=== PATIENT | female | born 1985 | race Caucasian/White ===

== ENCOUNTER 2016-09-29 13:11 | Emergency (ER) | payer MEDICAID ==
[~2016-09-29] VITALS: Ht 167.6 cm; Wt 95.5 kg
[~2016-09-29 13:11] MED LIST: ATIVAN0.5 MG PO; AXERT12.5 MG PO; AXERT6.25 MG; BUFFERED ASPIR325 M1 PO; CIPRO 500MG TA500 MG PO; DILAUDID 2MG TAB2 MG; DILAUDID 2MG TAB2 MG PO; FLEXERIL10 MG PO; FLOMAX 0.40.4 MG/CAP PO; FLUCONAZOLE; IUD; LORTAB 5/500 501 TAB PO; LORTAB 7.5/5001 TAB PO; METHOCARBAMOL500 MG PO; MIDRIN; MIDRIN 325 MG-11 CAP PO; MIGRANAL4 MG/ML NS; MOTRIN800 MG PO; NAPROSYN PO; NAPROXEN ER500 MG PO; NO HOME MEDICATIONS; NORCO 325 MG-51 TAB; OMNICEF 300MG300 MG PO; OXYCODONE HCL5 MG PO; OXYCONTIN10 MG PO; PEPCID 20MG TAB20 MG PO; PERCOCET 325 MG1 TA2 PO; PERCOCET 325 MG1 TAB PO; PERCOCET 5/321 UDTAB PO; PERCOCET 500 MG1 TAB; PERCOCET 500 MG1 TAB PO; PHENERGAN 25 TA25 MG PO; PHENERGAN25 MG RC; PRENATAL 1 PLUS1 TA3 PO; PRILOSEC 20MG20 MG PO; PYRIDIUM 100MG100 MG PO; RELPAX40 MG PO; SEPTRA DS 8001 TAB PO; TRAZODONE100 MG PO; TYLENOL 500MG500 MG PO; VALIUM5 MG PO; WELLBUTRIN PO; ZANAFLEX PO; ZANAFLEX4 M1 PO; ZITHROMAX 250M250 MG PO; ZOMIG5 MG PO
[2016-09-29 13:13] VITALS: TEMP 98.3
[2016-09-29] MEDS ORDERED: ZOMIG 2.5MG2.5 MG PO (13:17)
[2016-09-29 15:24] VITALS: BP 109/74
[2016-09-29 16:17] VITALS: PULSE 74
== END 2016-09-29 16:17 | disposition home or self-care (01) ==
LOC: COL.ER 13:11
DX: K52.9 Noninfective gastroenteritis and colitis, unspecified (principal); G43.909 Migraine, unspecified, not intractable, without status migrainosus
CPT/HCPCS: J1170; J2405; J2550; J7030

== ENCOUNTER 2016-11-15 11:53 | Emergency (ER) | payer MEDICAID ==
[2009-07-07 04:11] VITALS: BP 120/59
[~2016-11-15] VITALS: Ht 167.6 cm; Wt 90.9 kg
[~2016-11-15 11:53] MED LIST changes: +ZOMIG 2.5MG2.5 MG PO
[2016-11-15 11:54] VITALS: TEMP 97.1
[2016-11-15 14:39] VITALS: BP 114/70; PULSE 80
== END 2016-11-15 14:40 | disposition home or self-care (01) ==
LOC: COL.ER 11:53
DX: G43.909 Migraine, unspecified, not intractable, without status migrainosus (principal); K52.9 Noninfective gastroenteritis and colitis, unspecified; Z87.891 Personal history of nicotine dependence
CPT/HCPCS: J1170; J1200; J2405; J7030

== ENCOUNTER 2017-03-06 16:11 | Emergency (ER) | payer MEDICAID ==
[2009-07-07 04:11] VITALS: BP 120/59
[~2017-03-06] VITALS: Ht 167.6 cm; Wt 104.5 kg
[2017-03-06 16:13] VITALS: TEMP 99
[2017-03-06] MEDS ORDERED: PREDNISONE10 MG PO ×2 (16:17)
[2017-03-06 18:13] LABS: PH 7 (5-8); SQUAMOUS EPITHELIAL None Seen /hpf; URINE APPEARANCE Clear; URINE BACTERIA None Seen /hpf; URINE BILIRUBIN Negative (NEGATIVE); URINE BLOOD 2+ (NEGATIVE); URINE COLOR Straw; URINE GLUCOSE Negative (NEGATIVE); URINE KETONE Negative (NEGATIVE); URINE RBC None Seen /hpf; URINE UROBILINOGEN Negative (NEGATIVE); URINE WBC 0-2 /hpf
[2017-03-06 22:00] VITALS: BP 122/81; PULSE 63
== END 2017-03-06 20:12 | disposition home or self-care (01) ==
LOC: COL.ER 16:11
PROVIDERS: Nurse Practitioner
DX: G43.909 Migraine, unspecified, not intractable, without status migrainosus (principal); R10.31 Right lower quadrant pain; Z87.442 Personal history of urinary calculi
CPT/HCPCS: J1170; J1200; J2550; J7030

== ENCOUNTER 2017-07-04 14:38 | Emergency (ER) | payer MEDICAID ==
[2009-07-07 04:11] VITALS: BP 120/59
[~2017-07-04] VITALS: Ht 167.6 cm; Wt 95.5 kg
[~2017-07-04 14:38] MED LIST changes: +PREDNISONE10 MG PO
[2017-07-04 14:41] VITALS: BP 144/72; TEMP 99.2
[2017-07-04] MEDS ORDERED: KLONOPIN 0.5MG0.5 MG PO (14:53)
[2017-07-04] MEDS ORDERED: ZOMIG 2.5MG2.5 MG PO (14:53)
[2017-07-04 16:16] VITALS: PULSE 83
== END 2017-07-04 16:17 | disposition home or self-care (01) ==
LOC: COL.ER 14:38
DX: G43.909 Migraine, unspecified, not intractable, without status migrainosus (principal)
CPT/HCPCS: J1170; J1200; J2550; J7030

== ENCOUNTER 2017-07-07 19:30 | Emergency (ER) | payer MEDICAID ==
[~2017-07-07] VITALS: Ht 167.6 cm; Wt 95.5 kg
[~2017-07-07 19:30] MED LIST changes: +KLONOPIN 0.5MG0.5 MG PO
[2017-07-07 19:35] VITALS: BP 140/70; TEMP 98.4
[2017-07-07] MEDS ORDERED: FIORICET 325 MG1 TA1 PO (21:40)
[2017-07-08 00:33] VITALS: PULSE 78
== END 2017-07-08 00:36 | disposition home or self-care (01) ==
LOC: COL.ER 19:30
DX: G43.909 Migraine, unspecified, not intractable, without status migrainosus (principal)
CPT/HCPCS: J1110; J1170; J1200; J2405; J2550; J7030

== ENCOUNTER → 2017-08-10 | Outpatient (CLI) | payer MEDICAID ==
[~2017-08-10] MED LIST changes: +FIORICET 325 MG1 TA1 PO
== END ==
LOC: COL.RAD 14:36
DX: M25.472 Effusion, left ankle (principal)

== ENCOUNTER 2017-09-18 15:36 | Emergency (ER) | payer MEDICAID ==
[2009-07-07 04:11] VITALS: BP 120/59
[~2017-09-18] VITALS: Ht 167.6 cm; Wt 104.5 kg
[2017-09-18 15:40] VITALS: TEMP 98.3
[2017-09-18 16:28] LABS: COLLECTION METHOD CLEAN CATCH
[2017-09-18 16:37] LABS: MUCOUS Present /lpf; PH 5 (5-8); URINE APPEARANCE Cloudy; URINE BACTERIA Rare /hpf; URINE BILIRUBIN Negative (NEGATIVE); URINE BLOOD 3+ (NEGATIVE); URINE COLOR Yellow; URINE GLUCOSE Negative (NEGATIVE); URINE KETONE Negative (NEGATIVE); URINE LEUKOCYTE ESTERASE Negative (NEGATIVE); URINE NITRATE Negative (NEGATIVE); URINE PROTEIN(semi-quant) Negative (NEGATIVE); URINE RBC >50 /hpf; URINE UROBILINOGEN Negative (NEGATIVE)
[2017-09-18 17:08] LABS: BASO % 0.7 % (0.0-2.0); EOS # 0.2 (0.0-0.7); EOS % 2.9 % (0-4.0); GRAN # 3.1 (1.4-6.5); GRAN % 55.1 % (42.2-75.2); HEMATOCRIT 41.3 % (37.0-47.0); HEMOGLOBIN 13.7 g/dl (12.5-16.0); LYMPH # 1.9 (1.2-3.4); LYMPH % 33.2 % (20.0-51.0); MEAN CELL VOLUME 82 fl (80.0-100.0); MEAN CORPUSCULAR HEMOGLOBIN 27 pg (27.0-31.0); MEAN CORPUSCULAR HGB CONC 33 g/dl (33.0-37.0); MEAN PLATELET VOLUME 10.7 fl (7.4-10.4); MONO # 0.4 (0.1-0.6); MONO % 7.7 % (1.7-9.3); PLATELET COUNT 222 K/mm3 (130-400); RED BLOOD COUNT 5.02 M/mm3 (4.10-5.30); REDCELL DISTRIBUTION WIDTH-CV 13.6 % (11.5-14.5)
[2017-09-18 17:20] LABS: ALBUMIN 4.7 gm/dL (3.5-5.0); BILIRUBIN,TOTAL 0.4 mg/dL (0.0-1.0); CALCIUM 9.5 mg/dL (8.4-10.2); CREATININE, serum 0.75 mg/dL (0.52-1.25); POTASSIUM 4.1 mmol/L (3.4-5.0)
[2017-09-18 17:40] VITALS: BP 121/86
[2017-09-18] MEDS ORDERED: NORCO 325 MG-51 TAB PO (18:44)
[2017-09-18 19:04] VITALS: PULSE 76
== END 2017-09-18 19:04 | disposition home or self-care (01) ==
LOC: COL.ER 15:36
PROVIDERS: Nurse Practitioner Primary Care
DX: R10.31 Right lower quadrant pain (principal); Z90.49 Acquired absence of other specified parts of digestive tract; Z90.89 Acquired absence of other organs; Z87.442 Personal history of urinary calculi
CPT/HCPCS: J1170; J2270; J2405; J7030

== ENCOUNTER 2017-10-24 08:37 | Day surgery (SDC) | payer MEDICAID ==
[2009-07-07 04:11] VITALS: BP 120/59
[~2017-10-24] VITALS: Ht 167.6 cm; Wt 109.2 kg
[~2017-10-24 08:37] MED LIST changes: +NORCO 325 MG-51 TAB PO
[2017-10-24 08:58] VITALS: BP 127/80; PULSE 91; TEMP 97.9
[2017-10-24 11:20] VITALS: BP 107/71; PULSE 74; TEMP 98
[2017-10-24 11:35] VITALS: BP 94/56; PULSE 74
[2017-10-24] MEDS ORDERED: MIRALAX PA17 GM/Dose PO (11:36)
[2017-10-24 11:50] VITALS: BP 116/70; PULSE 70
[2017-10-24 12:05] VITALS: BP 106/78; PULSE 60
== END 2017-10-24 12:20 | disposition home or self-care (01) ==
LOC: SDCO 08:37
DX: D72.820 Lymphocytosis (symptomatic) (principal); K29.30 Chronic superficial gastritis without bleeding; K44.9 Diaphragmatic hernia without obstruction or gangrene; K29.80 Duodenitis without bleeding; R10.84 Generalized abdominal pain; K64.4 Residual hemorrhoidal skin tags; E66.01 Morbid (severe) obesity due to excess calories; Z68.39 Body mass index [BMI] 39.0-39.9, adult; F32.9 Major depressive disorder, single episode, unspecified; G43.909 Migraine, unspecified, not intractable, without status migrainosus; Z87.891 Personal history of nicotine dependence; F19.11 Other psychoactive substance abuse, in remission; Z88.6 Allergy status to analgesic agent; Z88.5 Allergy status to narcotic agent; Z88.0 Allergy status to penicillin; Z88.8 Allergy status to other drugs, medicaments and biological substances
CPT/HCPCS: OP; J2704; J7120

== ENCOUNTER 2018-01-02 10:07 | Emergency (ER) | payer BC ==
[2009-07-07 04:11] VITALS: BP 120/59
[~2018-01-02] VITALS: Ht 167.6 cm; Wt 120.5 kg
[~2018-01-02 10:07] MED LIST changes: +MIRALAX PA17 GM/Dose PO
[2018-01-02 10:12] VITALS: BP 122/88; TEMP 98.1
[2018-01-02] MEDS ORDERED: NORCO 325 MG-51 TAB PO (11:34)
[2018-01-02] MEDS ORDERED: FLEXERIL 1010 MG/TAB PO (11:34)
[2018-01-02 12:12] VITALS: PULSE 98
[2018-01-02] MEDS ORDERED: PREDNISONE20 MG PO (13:58)
== END 2018-01-02 12:11 | disposition home or self-care (01) ==
LOC: COL.ER 10:07
DX: S33.9XXA Sprain of unspecified parts of lumbar spine and pelvis, initial encounter (principal); M62.830 Muscle spasm of back; G43.909 Migraine, unspecified, not intractable, without status migrainosus; X50.1XXA Overexertion from prolonged static or awkward postures, initial encounter
CPT/HCPCS: J1170; J2060; J7512

== ENCOUNTER → 2018-02-09 | Outpatient (CLI) | payer BC ==
[~2018-02-09] MED LIST changes: +FLEXERIL 1010 MG/TAB PO; +PREDNISONE20 MG PO
== END ==
LOC: MHCPAIN 10:41
DX: G89.29 Other chronic pain (principal); M47.817 Spondylosis without myelopathy or radiculopathy, lumbosacral region; M54.16 Radiculopathy, lumbar region
CPT/HCPCS: G0463

== ENCOUNTER 2018-02-16 08:18 | Emergency (ER) | payer BC ==
[2009-07-07 04:11] VITALS: BP 120/59
[~2018-02-16] VITALS: Ht 167.6 cm; Wt 111.4 kg
[2018-02-16 08:22] VITALS: BP 120/74; TEMP 98
[2018-02-16] MEDS ORDERED: PREDNISONE20 MG PO (08:27)
[2018-02-16] MEDS ORDERED: ZOMIG 2.5MG2.5 MG PO (08:28)
[2018-02-16] MEDS ORDERED: NEURONTIN300 MG/CAP PO (08:29)
[2018-02-16] MEDS ORDERED: KLONOPIN 0.5MG0.5 MG PO (08:30)
[2018-02-16 10:45] VITALS: PULSE 80
== END 2018-02-16 10:45 | disposition home or self-care (01) ==
LOC: COL.ER 08:18
DX: G43.909 Migraine, unspecified, not intractable, without status migrainosus (principal); Z88.6 Allergy status to analgesic agent
CPT/HCPCS: J0595; J2550; J3010

== ENCOUNTER → 2019-06-17 | Outpatient (CLI) | payer MEDICAID ==
[~2019-06-17] MED LIST changes: +NEURONTIN300 MG/CAP PO
== END ==
LOC: DIA.ED 08:38
DX: E11.9 Type 2 diabetes mellitus without complications (principal)
CPT/HCPCS: G0108

== ENCOUNTER 2019-11-08 20:33 | Emergency (ER) | payer MEDICAID ==
[2009-07-07 04:11] VITALS: BP 120/59
[~2019-11-08] VITALS: Ht 165.1 cm; Wt 118.2 kg
[2019-11-09 00:27] VITALS: BP 106/66; PULSE 100; TEMP 98.2
== END 2019-11-09 00:44 | disposition home or self-care (01) ==
LOC: COL.ER 20:33
DX: J06.9 Acute upper respiratory infection, unspecified (principal); F41.9 Anxiety disorder, unspecified; G43.909 Migraine, unspecified, not intractable, without status migrainosus; Z87.891 Personal history of nicotine dependence
CPT/HCPCS: J2550

== ENCOUNTER 2020-04-28 16:45 | Emergency (ER) | payer MEDICAID ==
[2009-07-07 04:11] VITALS: BP 120/59
[~2020-04-28] VITALS: Ht 165.1 cm; Wt 100.0 kg
[2020-04-28 16:53] VITALS: TEMP 97.6
[2020-04-28] MEDS ORDERED: NORCO 325 MG-51 TAB PO (19:27)
[2020-04-28] MEDS ORDERED: FLEXERIL 1010 MG/TAB PO (19:27)
[2020-04-28 20:11] VITALS: BP 119/75; PULSE 81
== END 2020-04-28 20:00 | disposition home or self-care (01) ==
LOC: COL.ER 16:45
DX: S16.1XXA Strain of muscle, fascia and tendon at neck level, initial encounter (principal); G43.909 Migraine, unspecified, not intractable, without status migrainosus; V43.62XA Car passenger injured in collision with other type car in traffic accident, initial encounter
CPT/HCPCS: J1170; J1200; J2550; J7030

== ENCOUNTER 2020-11-30 23:32 | Emergency (ER) | payer MEDICAID ==
[2009-07-07 04:11] VITALS: BP 120/59
[~2020-11-30] VITALS: Ht 165.1 cm; Wt 86.4 kg
[2020-11-30 23:36] VITALS: TEMP 97.1
[2020-12-01 00:30] LABS: COLLECTION METHOD CLEAN CATCH
[2020-12-01 00:32] LABS: BASO % 0.9 % (0.0-2.0); EOS # 0.3 (0.0-0.7); GRAN # 1.7 (1.4-6.5); GRAN % 37.6 % (42.2-75.2); HEMATOCRIT 38.9 % (37.0-47.0); HEMOGLOBIN 12.6 g/dl (12.5-16.0); LYMPH # 2.1 (1.2-3.4); LYMPH % 46.4 % (20.0-51.0); MEAN CELL VOLUME 84 fl (80.0-100.0); MEAN CORPUSCULAR HEMOGLOBIN 27 pg (27.0-31.0); MEAN CORPUSCULAR HGB CONC 32 g/dl (33.0-37.0); MEAN PLATELET VOLUME 9.9 fl (7.4-10.4); MONO # 0.4 (0.1-0.6); MONO % 8.9 % (1.7-9.3); PLATELET COUNT 204 K/mm3 (130-400); RED BLOOD COUNT 4.63 M/mm3 (4.10-5.30); REDCELL DISTRIBUTION WIDTH-CV 13.2 % (11.5-14.5)
[2020-12-01 00:36] LABS: MUCOUS Present /lpf; PH 5 (5-8); URINE APPEARANCE Cloudy; URINE BACTERIA Rare /hpf; URINE BILIRUBIN Negative (NEGATIVE); URINE BLOOD 3+ (NEGATIVE); URINE COLOR Yellow; URINE GLUCOSE Negative (NEGATIVE); URINE KETONE Negative (NEGATIVE); URINE LEUKOCYTE ESTERASE Negative (NEGATIVE); URINE NITRATE Negative (NEGATIVE); URINE PROTEIN(semi-quant) 1+ (NEGATIVE); URINE RBC >50 /hpf
[2020-12-01 00:42] LABS: CALCIUM 9.1 mg/dL (8.4-10.2); CREATININE, serum 0.6 (0.52-1.25); POTASSIUM 3.7 mmol/L (3.4-5.0)
[2020-12-01] MEDS ORDERED: PERCOCET 325 MG1 TA2 PO (02:09)
[2020-12-01] MEDS ORDERED: FLEXERIL 1010 MG/TAB PO (02:09)
[2020-12-01] MEDS ORDERED: PREDNISONE20 MG PO (02:09)
[2020-12-01 02:31] VITALS: BP 120/69; PULSE 89
[2021-06-30] MEDS ORDERED: ASPERCREME1 EACH TP (18:18)
== END 2020-12-01 02:35 | disposition home or self-care (01) ==
LOC: COL.ER 23:32
PROVIDERS: Emergency Medicine
DX: R31.9 Hematuria, unspecified (principal); M54.5 Low back pain; Z87.442 Personal history of urinary calculi; Z88.8 Allergy status to other drugs, medicaments and biological substances; Z88.0 Allergy status to penicillin; Z88.6 Allergy status to analgesic agent
CPT/HCPCS: J2060; J2270; J2405; J3010; J7030; Q9967

== ENCOUNTER 2020-12-15 18:19 | Emergency (ER) | payer MEDICAID ==
[2009-07-07 04:11] VITALS: BP 120/59
[~2020-12-15] VITALS: Ht 165.1 cm; Wt 90.9 kg
[2020-12-15 18:23] VITALS: TEMP 97.7
[2020-12-15 18:51] LABS: BASO % 0.9 % (0.0-2.0); EOS # 0.2 (0.0-0.7); EOS % 4.5 % (0-4.0); GRAN # 2.1 (1.4-6.5); GRAN % 48.1 % (42.2-75.2); HEMATOCRIT 40.2 % (37.0-47.0); HEMOGLOBIN 13.2 g/dl (12.5-16.0); LYMPH # 1.5 (1.2-3.4); LYMPH % 34.4 % (20.0-51.0); MEAN CELL VOLUME 83 fl (80.0-100.0); MEAN CORPUSCULAR HEMOGLOBIN 27 pg (27.0-31.0); MEAN CORPUSCULAR HGB CONC 33 g/dl (33.0-37.0); MEAN PLATELET VOLUME 10.4 fl (7.4-10.4); MONO # 0.5 (0.1-0.6); MONO % 11.9 % (1.7-9.3); PLATELET COUNT 191 K/mm3 (130-400); RED BLOOD COUNT 4.86 M/mm3 (4.10-5.30)
[2020-12-15 19:03] LABS: ALBUMIN 4.4 gm/dL (3.5-5.0); BILIRUBIN,TOTAL 0.2 mg/dL (0.0-1.0); C-REACTIVE PROTEIN 0.7 mg/dL (0.0-0.9); CALCIUM 9.1 mg/dL (8.4-10.2); CREATININE, serum 0.5 (0.52-1.25); POTASSIUM 3.7 mmol/L (3.4-5.0)
[2020-12-15 19:24] LABS: COLLECTION METHOD CLEAN CATCH
[2020-12-15 19:31] LABS: MUCOUS Present /lpf; PH 5 (5-8); URINE APPEARANCE Cloudy; URINE BACTERIA Rare /hpf; URINE BILIRUBIN Negative (NEGATIVE); URINE BLOOD Negative (NEGATIVE); URINE COLOR Yellow; URINE GLUCOSE Negative (NEGATIVE); URINE KETONE Negative (NEGATIVE); URINE LEUKOCYTE ESTERASE Negative (NEGATIVE); URINE NITRATE Negative (NEGATIVE); URINE PROTEIN(semi-quant) Negative (NEGATIVE)
[2020-12-15 19:54] VITALS: BP 118/90; PULSE 78
[2021-06-30] MEDS ORDERED: ASPERCREME1 EACH TP (18:18)
== END 2020-12-15 19:54 | disposition home or self-care (01) ==
LOC: COL.ER 18:19
PROVIDERS: Nurse Practitioner
DX: R10.9 Unspecified abdominal pain (principal); G43.909 Migraine, unspecified, not intractable, without status migrainosus; Z32.02 Encounter for pregnancy test, result negative; Z90.49 Acquired absence of other specified parts of digestive tract; Z88.8 Allergy status to other drugs, medicaments and biological substances; Z88.0 Allergy status to penicillin; Z88.6 Allergy status to analgesic agent; Z87.891 Personal history of nicotine dependence; Z79.52 Long term (current) use of systemic steroids
CPT/HCPCS: J2060; J2270; J2405; J3010; J7030

== ENCOUNTER 2021-02-02 20:43 | Emergency (ER) | payer MEDICAID ==
[2009-07-07 04:11] VITALS: BP 120/59
[~2021-02-02] VITALS: Ht 165.1 cm; Wt 88.6 kg
[2021-02-02 20:57] VITALS: TEMP 98.3
[2021-02-02 21:21] LABS: BASO # 0.1 (0.0-0.2); BASO % 0.9 % (0.0-2.0); EOS # 0.3 (0.0-0.7); EOS % 5.8 % (0-4.0); GRAN # 2.4 (1.4-6.5); GRAN % 44.8 % (42.2-75.2); HEMATOCRIT 41.2 % (37.0-47.0); HEMOGLOBIN 13.5 g/dl (12.5-16.0); LYMPH # 2.2 (1.2-3.4); LYMPH % 40.1 % (20.0-51.0); MEAN CELL VOLUME 83 fl (80.0-100.0); MEAN CORPUSCULAR HEMOGLOBIN 27 pg (27.0-31.0); MEAN CORPUSCULAR HGB CONC 33 g/dl (33.0-37.0); MEAN PLATELET VOLUME 10.2 fl (7.4-10.4); MONO # 0.4 (0.1-0.6); MONO % 8.2 % (1.7-9.3); PLATELET COUNT 207 K/mm3 (130-400); RED BLOOD COUNT 4.99 M/mm3 (4.10-5.30); REDCELL DISTRIBUTION WIDTH-CV 12.7 % (11.5-14.5)
[2021-02-02 21:32] LABS: ALBUMIN 4.4 gm/dL (3.5-5.0); BILIRUBIN,TOTAL 0.2 mg/dL (0.0-1.0); CALCIUM 8.9 mg/dL (8.4-10.2); CREATININE, serum 0.53 (0.52-1.25)
[2021-02-02 22:14] LABS: COLLECTION METHOD CLEAN CATCH
[2021-02-02 22:33] LABS: BUDDING YEAST Present /hpf; MUCOUS Present /lpf; PH 5 (5-8); URINE APPEARANCE Cloudy; URINE BACTERIA None Seen /hpf; URINE BILIRUBIN Negative (NEGATIVE); URINE BLOOD 3+ (NEGATIVE); URINE COLOR Amber; URINE GLUCOSE Negative (NEGATIVE); URINE KETONE Trace (NEGATIVE); URINE LEUKOCYTE ESTERASE Negative (NEGATIVE); URINE NITRATE Negative (NEGATIVE); URINE PROTEIN(semi-quant) 2+ (NEGATIVE); URINE RBC >50 /hpf; URINE UROBILINOGEN >=4.0 mg/dL (NEGATIVE)
[2021-02-02] MEDS ORDERED: PERCOCET 325 MG1 TA2 PO (23:15)
[2021-02-02] MEDS ORDERED: PHENERGAN 25 TA25 MG PO (23:15)
[2021-02-02] MEDS ORDERED: CEFTIN500 MG PO (23:15)
[2021-02-02 23:30] VITALS: BP 120/80; PULSE 88
[2021-06-30] MEDS ORDERED: ASPERCREME1 EACH TP (18:18)
== END 2021-02-02 23:35 | disposition home or self-care (01) ==
LOC: COL.ER 20:43
PROVIDERS: Emergency Medicine
DX: N39.0 Urinary tract infection, site not specified (principal); G43.909 Migraine, unspecified, not intractable, without status migrainosus; Z90.49 Acquired absence of other specified parts of digestive tract; Z88.0 Allergy status to penicillin; Z88.6 Allergy status to analgesic agent; Z79.891 Long term (current) use of opiate analgesic
CPT/HCPCS: J0696; J1170; J2550; J7030; Q9967

== ENCOUNTER 2021-02-10 20:46 | Emergency (ER) | payer MEDICAID ==
[2009-07-07 04:11] VITALS: BP 120/59
[~2021-02-10] VITALS: Ht 165.1 cm; Wt 90.9 kg
[~2021-02-10 20:46] MED LIST changes: +CEFTIN500 MG PO
[2021-02-10 21:34] LABS: BASO % 0.8 % (0.0-2.0); EOS # 0.2 (0.0-0.7); EOS % 4.8 % (0-4.0); GRAN # 1.8 (1.4-6.5); GRAN % 35.6 % (42.2-75.2); HEMATOCRIT 39.5 % (37.0-47.0); LYMPH # 2.5 (1.2-3.4); LYMPH % 50.9 % (20.0-51.0); MEAN CELL VOLUME 83 fl (80.0-100.0); MEAN CORPUSCULAR HEMOGLOBIN 27 pg (27.0-31.0); MEAN CORPUSCULAR HGB CONC 33 g/dl (33.0-37.0); MEAN PLATELET VOLUME 10.8 fl (7.4-10.4); MONO # 0.4 (0.1-0.6); MONO % 7.7 % (1.7-9.3); PLATELET COUNT 199 K/mm3 (130-400); RED BLOOD COUNT 4.76 M/mm3 (4.10-5.30); REDCELL DISTRIBUTION WIDTH-CV 12.9 % (11.5-14.5)
[2021-02-10 21:36] LABS: ALBUMIN 4.6 gm/dL (3.5-5.0); BILIRUBIN,TOTAL 0.4 mg/dL (0.0-1.0); CALCIUM 8.9 mg/dL (8.4-10.2); CREATININE, serum 0.53 (0.52-1.25); POTASSIUM 3.6 mmol/L (3.4-5.0); TOTAL PROTEIN 8.3 gm/dL (6.4-8.2)
[2021-02-10 21:47] LABS: COLLECTION METHOD CLEAN CATCH
[2021-02-10 21:57] LABS: MUCOUS Present /lpf; PH 5 (5-8); URINE APPEARANCE Cloudy; URINE BACTERIA Rare /hpf; URINE BILIRUBIN Negative (NEGATIVE); URINE BLOOD 3+ (NEGATIVE); URINE COLOR Yellow; URINE GLUCOSE Negative (NEGATIVE); URINE KETONE Negative (NEGATIVE); URINE LEUKOCYTE ESTERASE Negative (NEGATIVE); URINE NITRATE Negative (NEGATIVE); URINE PROTEIN(semi-quant) Negative (NEGATIVE); URINE RBC >50 /hpf; URINE UROBILINOGEN Negative (NEGATIVE)
[2021-02-11 00:19] VITALS: BP 152/110; PULSE 94; TEMP 98.7
[2021-06-30] MEDS ORDERED: ASPERCREME1 EACH TP (18:18)
== END 2021-02-10 23:15 | disposition home or self-care (01) ==
LOC: COL.ER 20:46
PROVIDERS: Physician Assistant
DX: N39.0 Urinary tract infection, site not specified (principal); G43.909 Migraine, unspecified, not intractable, without status migrainosus; Z87.442 Personal history of urinary calculi; Z98.84 Bariatric surgery status; Z90.49 Acquired absence of other specified parts of digestive tract; Z87.891 Personal history of nicotine dependence; Z79.891 Long term (current) use of opiate analgesic
CPT/HCPCS: J1200; J1630; J2060; J2270; J2405; J7030

== ENCOUNTER 2021-07-10 14:23 | Emergency (ER) | payer MEDICAID ==
[~2021-07-10] VITALS: Ht 165.1 cm; Wt 84.1 kg
[~2021-07-10 14:23] MED LIST changes: +ASPERCREME1 EACH TP
[2021-07-10 15:02] LABS: BASO # 0.1 K/mm3 (0.0-0.2); BASO % 0.8 % (0.0-2.0); EOS # 0.1 K/mm3 (0.0-0.7); EOS % 0.9 % (0-4.0); GRAN # 5.6 K/mm3 (1.4-6.5); GRAN % 69.4 % (42.2-75.2); HEMATOCRIT 41.3 % (37.0-47.0); LYMPH # 1.9 K/mm3 (1.2-3.4); LYMPH % 23.2 % (20.0-51.0); MEAN CELL VOLUME 81 fl (80.0-100.0); MEAN CORPUSCULAR HEMOGLOBIN 27 pg (27.0-31.0); MEAN CORPUSCULAR HGB CONC 34 g/dl (33.0-37.0); MEAN PLATELET VOLUME 10.1 fl (7.4-10.4); MONO # 0.4 K/mm3 (0.1-0.6); MONO % 5.4 % (1.7-9.3); PLATELET COUNT 250 K/mm3 (130-400); RED BLOOD COUNT 5.11 M/mm3 (4.10-5.30); REDCELL DISTRIBUTION WIDTH-CV 13.1 % (11.5-14.5)
[2021-07-10 15:24] LABS: ALANINE AMINOTRANSFERASE 16 U/L (0-55); ALBUMIN 4.3 gm/dL (3.5-5.0); ALKALINE PHOSPHATASE 70 U/L (40-150); ANION GAP 11 mmol/L (7-16); AST,SGOT 14 U/L (5-34); BILIRUBIN,TOTAL 0.6 mg/dL (0.2-1.2); BLOOD UREA NITROGEN 8 mg/dL (7-19); C-REACTIVE PROTEIN 0.08 mg/dL (0.00-0.50); CALCIUM 9.9 mg/dL (8.4-10.2); CARBON DIOXIDE 20 mmol/L (22-29); CHLORIDE 110 mmol/L (98-107); GLUCOSE 132 mg/dL (70-99); LIPASE 12 U/L (8-78); POTASSIUM 3.7 mmol/L (3.5-4.5); SODIUM 141 mmol/L (136-145); TOTAL PROTEIN 7.9 gm/dL (6.2-8.1)
[2021-07-10 15:26] LABS: ALCOHOL(ethanol),MEDICAL < 10 mg/dL (0-10)
[2021-07-10 17:06] LABS: COLLECTION METHOD CLEAN CATCH
[2021-07-10 17:13] LABS: MUCOUS Present /lpf; PH 5 (5-8); URINE APPEARANCE Hazy; URINE BACTERIA Rare /hpf; URINE BILIRUBIN Negative (NEGATIVE); URINE BLOOD Negative (NEGATIVE); URINE COLOR Yellow; URINE GLUCOSE Negative (NEGATIVE); URINE KETONE Negative (NEGATIVE); URINE LEUKOCYTE ESTERASE Negative (NEGATIVE); URINE NITRATE Negative (NEGATIVE); URINE PROTEIN(semi-quant) 1+ (NEGATIVE); URINE UROBILINOGEN Negative (NEGATIVE)
[2021-07-10 17:23] LABS: TRICYCLIC ANTIDEPRESS URINE POSITIVE
[2021-07-10] MEDS ORDERED: CEFTIN500 MG PO (18:51)
[2021-07-10 19:08] VITALS: BP 116/88; PULSE 112; TEMP 98.4
== END 2021-07-10 19:08 | disposition home or self-care (01) ==
LOC: COL.ER 14:23
PROVIDERS: Physician Assistant
DX: R30.0 Dysuria (principal); R10.9 Unspecified abdominal pain; R55 Syncope and collapse; F41.9 Anxiety disorder, unspecified; G43.909 Migraine, unspecified, not intractable, without status migrainosus; Z87.442 Personal history of urinary calculi; Z96.0 Presence of urogenital implants; Z32.02 Encounter for pregnancy test, result negative; Z79.899 Other long term (current) drug therapy
CPT/HCPCS: J2060; J2270; J7030; Q9967

== ENCOUNTER 2021-07-16 21:19 | Emergency (ER) | payer MEDICAID ==
[~2021-07-16] VITALS: Ht 165.1 cm; Wt 86.4 kg
[2021-07-16 21:54] LABS: BASO # 0.1 K/mm3 (0.0-0.2); BASO % 0.7 % (0.0-2.0); EOS # 0.2 K/mm3 (0.0-0.7); GRAN # 4.8 K/mm3 (1.4-6.5); GRAN % 52.1 % (42.2-75.2); HEMATOCRIT 37.9 % (37.0-47.0); HEMOGLOBIN 13.1 g/dl (12.5-16.0); LYMPH # 3.4 K/mm3 (1.2-3.4); LYMPH % 37.2 % (20.0-51.0); MEAN CELL VOLUME 81 fl (80.0-100.0); MEAN CORPUSCULAR HEMOGLOBIN 28 pg (27.0-31.0); MEAN CORPUSCULAR HGB CONC 35 g/dl (33.0-37.0); MEAN PLATELET VOLUME 11.6 fl (7.4-10.4); MONO # 0.7 K/mm3 (0.1-0.6); MONO % 7.9 % (1.7-9.3); PLATELET COUNT 243 K/mm3 (130-400); REDCELL DISTRIBUTION WIDTH-CV 13.5 % (11.5-14.5)
[2021-07-16 22:22] LABS: BILIRUBIN,TOTAL 0.4 mg/dL (0.2-1.2); C-REACTIVE PROTEIN 0.06 mg/dL (0.00-0.50); CALCIUM 9.6 mg/dL (8.4-10.2); POTASSIUM 3.3 mmol/L (3.5-4.5); TOTAL PROTEIN 6.6 gm/dL (6.2-8.1)
[2021-07-16 22:26] LABS: COLLECTION METHOD CLEAN CATCH
[2021-07-16 22:37] LABS: CREATININE, serum 0.67 mg/dL (0.57-1.11)
[2021-07-16 23:09] LABS: MUCOUS Present /lpf; PH 6 (5-8); URINE APPEARANCE Cloudy; URINE BACTERIA Rare /hpf; URINE BILIRUBIN Negative (NEGATIVE); URINE BLOOD 2+ (NEGATIVE); URINE CALCIUM OXALATE CRYSTAL Present /hpf; URINE COLOR Yellow; URINE GLUCOSE Negative (NEGATIVE); URINE KETONE Negative (NEGATIVE); URINE LEUKOCYTE ESTERASE 3+ (NEGATIVE); URINE NITRATE Negative (NEGATIVE); URINE PROTEIN(semi-quant) 2+ (NEGATIVE); URINE RBC >50 /hpf; URINE UROBILINOGEN Negative (NEGATIVE)
[2021-07-17] MEDS ORDERED: BACTRIM DS 8001 TAB PO (00:27)
[2021-07-17 00:50] VITALS: BP 131/74; PULSE 80; TEMP 98
== END 2021-07-17 00:50 | disposition home or self-care (01) ==
LOC: COL.ER 21:19
PROVIDERS: Nurse Practitioner; Personal Emergency Response Attendant
DX: N39.0 Urinary tract infection, site not specified (principal); G43.909 Migraine, unspecified, not intractable, without status migrainosus; Z87.442 Personal history of urinary calculi; Z90.49 Acquired absence of other specified parts of digestive tract; Z96.0 Presence of urogenital implants; Z98.84 Bariatric surgery status; Z88.0 Allergy status to penicillin; Z88.5 Allergy status to narcotic agent; Z79.899 Other long term (current) drug therapy
CPT/HCPCS: J1170; J2270; J2405; J2550; J7030

== ENCOUNTER 2021-07-19 09:14 | Emergency (ER) | payer MEDICAID ==
[~2021-07-19] VITALS: Ht 162.6 cm; Wt 84.5 kg
[~2021-07-19 09:14] MED LIST changes: +BACTRIM DS 8001 TAB PO
[2021-07-19 09:35] LABS: BASO % 0.8 % (0.0-2.0); EOS # 0.1 K/mm3 (0.0-0.7); EOS % 2.8 % (0-4.0); GRAN # 2.9 K/mm3 (1.4-6.5); GRAN % 57.3 % (42.2-75.2); HEMATOCRIT 38.6 % (37.0-47.0); HEMOGLOBIN 13.3 g/dl (12.5-16.0); LYMPH # 1.6 K/mm3 (1.2-3.4); MEAN CELL VOLUME 80 fl (80.0-100.0); MEAN CORPUSCULAR HEMOGLOBIN 28 pg (27.0-31.0); MEAN CORPUSCULAR HGB CONC 35 g/dl (33.0-37.0); MEAN PLATELET VOLUME 10.3 fl (7.4-10.4); MONO # 0.4 K/mm3 (0.1-0.6); MONO % 7.9 % (1.7-9.3); PLATELET COUNT 256 K/mm3 (130-400); RED BLOOD COUNT 4.81 M/mm3 (4.10-5.30); REDCELL DISTRIBUTION WIDTH-CV 13.3 % (11.5-14.5)
[2021-07-19 09:51] LABS: COLLECTION METHOD CLEAN CATCH
[2021-07-19 09:57] LABS: MUCOUS Present /lpf; PH 6 (5-8); URINE APPEARANCE Hazy; URINE BACTERIA Rare /hpf; URINE BILIRUBIN Negative (NEGATIVE); URINE BLOOD Negative (NEGATIVE); URINE COLOR Yellow; URINE GLUCOSE Negative (NEGATIVE); URINE KETONE Negative (NEGATIVE); URINE LEUKOCYTE ESTERASE Negative (NEGATIVE); URINE NITRATE Negative (NEGATIVE); URINE PROTEIN(semi-quant) Negative (NEGATIVE); URINE RBC 0-2 /hpf; URINE UROBILINOGEN Negative (NEGATIVE)
[2021-07-19 09:59] LABS: ALBUMIN 4.2 gm/dL (3.5-5.0); BILIRUBIN,TOTAL 0.4 mg/dL (0.2-1.2); CALCIUM 9.5 mg/dL (8.4-10.2); CREATININE, serum 0.69 mg/dL (0.57-1.11); POTASSIUM 4.1 mmol/L (3.5-4.5); TOTAL PROTEIN 7.5 gm/dL (6.2-8.1)
[2021-07-19 13:16] VITALS: TEMP 98.1
[2021-07-19 13:47] VITALS: BP 123/87; PULSE 87
[2021-07-20] MEDS ORDERED: LIBRIUM 10M10 MG/CAP PO (14:11)
== END 2021-07-19 14:09 | disposition left against medical advice (07) ==
LOC: COL.ER 09:14
PROVIDERS: Emergency Medicine
DX: R10.32 Left lower quadrant pain (principal); F32.A Depression, unspecified; F41.9 Anxiety disorder, unspecified; M32.9 Systemic lupus erythematosus, unspecified; Z32.02 Encounter for pregnancy test, result negative; Z90.49 Acquired absence of other specified parts of digestive tract; Z98.84 Bariatric surgery status; Z79.899 Other long term (current) drug therapy
CPT/HCPCS: J2060; J2270; J2405; J2550; J3010; J7030

== ENCOUNTER 2021-07-20 12:27 | Emergency (ER) | payer MEDICAID ==
[~2021-07-20] VITALS: Ht 162.6 cm; Wt 84.1 kg
[2021-07-20 12:31] VITALS: TEMP 98.8
[2021-07-20] MEDS ORDERED: LIBRIUM 10M10 MG/CAP PO (14:11)
[2021-07-20 14:30] VITALS: BP 138/99; PULSE 100
== END 2021-07-20 14:30 | disposition home or self-care (01) ==
LOC: COL.ER 12:27
DX: F41.9 Anxiety disorder, unspecified (principal); R10.32 Left lower quadrant pain; G43.909 Migraine, unspecified, not intractable, without status migrainosus; Z90.49 Acquired absence of other specified parts of digestive tract; Z98.84 Bariatric surgery status

== ENCOUNTER 2021-07-26 05:27 | Emergency (ER) | payer MEDICAID ==
[~2021-07-26] VITALS: Ht 165.1 cm; Wt 84.1 kg
[~2021-07-26 05:27] MED LIST changes: +LIBRIUM 10M10 MG/CAP PO
[2021-07-26 05:31] VITALS: TEMP 97.4
[2021-07-26 07:26] VITALS: BP 110/76; PULSE 82
== END 2021-07-26 07:32 | disposition home or self-care (01) ==
LOC: COL.ER 05:27
DX: G43.909 Migraine, unspecified, not intractable, without status migrainosus (principal); F32.A Depression, unspecified; F41.9 Anxiety disorder, unspecified; M32.9 Systemic lupus erythematosus, unspecified; Z88.5 Allergy status to narcotic agent; Z79.899 Other long term (current) drug therapy
CPT/HCPCS: J0780; J1100; J1200; J2270; J3475; J7030

== ENCOUNTER 2021-07-29 22:14 | Emergency (ER) | payer MEDICAID ==
[~2021-07-29] VITALS: Ht 165.1 cm; Wt 84.1 kg
[2021-07-29 23:32] LABS: BASO # 0.1 K/mm3 (0.0-0.2); BASO % 0.7 % (0.0-2.0); EOS # 0.2 K/mm3 (0.0-0.7); EOS % 2.5 % (0-4.0); GRAN # 3.5 K/mm3 (1.4-6.5); GRAN % 51.6 % (42.2-75.2); HEMATOCRIT 40.4 % (37.0-47.0); HEMOGLOBIN 13.6 g/dl (12.5-16.0); LYMPH # 2.5 K/mm3 (1.2-3.4); LYMPH % 37.1 % (20.0-51.0); MEAN CELL VOLUME 82 fl (80.0-100.0); MEAN CORPUSCULAR HEMOGLOBIN 28 pg (27.0-31.0); MEAN CORPUSCULAR HGB CONC 34 g/dl (33.0-37.0); MEAN PLATELET VOLUME 10.3 fl (7.4-10.4); MONO # 0.5 K/mm3 (0.1-0.6); MONO % 7.8 % (1.7-9.3); PLATELET COUNT 248 K/mm3 (130-400); RED BLOOD COUNT 4.93 M/mm3 (4.10-5.30); REDCELL DISTRIBUTION WIDTH-CV 13.1 % (11.5-14.5)
[2021-07-29 23:39] LABS: COLLECTION METHOD CLEAN CATCH
[2021-07-29 23:57] LABS: BUDDING YEAST Present (NOT PRESENT); MUCOUS Present (NOT PRESENT); PH 5 (5-8); URINE APPEARANCE Cloudy (CLEAR/HAZY); URINE BACTERIA None Seen (NONE SEEN); URINE BILIRUBIN Negative (NEGATIVE); URINE BLOOD 3+ (NEGATIVE); URINE COLOR Yellow (YELLOW); URINE GLUCOSE Negative (NEGATIVE); URINE KETONE Negative (NEGATIVE); URINE LEUKOCYTE ESTERASE Negative (NEGATIVE); URINE NITRATE Negative (NEGATIVE); URINE PROTEIN(semi-quant) Negative (NEGATIVE); URINE RBC 20-50 /hpf (0-2); URINE UROBILINOGEN Negative (NEGATIVE)
[2021-07-30 00:05] LABS: ALBUMIN 4.6 gm/dL (3.5-5.0); BILIRUBIN,TOTAL 0.3 mg/dL (0.2-1.2); CALCIUM 9.8 mg/dL (8.4-10.2); CREATININE, serum 0.74 mg/dL (0.57-1.11); POTASSIUM 4.1 mmol/L (3.5-4.5)
[2021-07-30 02:51] VITALS: BP 113/88; PULSE 87; TEMP 98.1
== END 2021-07-30 02:51 | disposition home or self-care (01) ==
LOC: COL.ER 22:14
PROVIDERS: Emergency Medicine; Physician Assistant
DX: R31.9 Hematuria, unspecified (principal); R10.30 Lower abdominal pain, unspecified; G43.909 Migraine, unspecified, not intractable, without status migrainosus; Z87.442 Personal history of urinary calculi; Z90.49 Acquired absence of other specified parts of digestive tract; Z98.84 Bariatric surgery status; Z96.0 Presence of urogenital implants; Z88.5 Allergy status to narcotic agent; Z88.8 Allergy status to other drugs, medicaments and biological substances; Z32.02 Encounter for pregnancy test, result negative; Z79.899 Other long term (current) drug therapy
CPT/HCPCS: J1790; J2270

== ENCOUNTER 2021-08-01 21:26 | Emergency (ER) | payer MEDICAID ==
[~2021-08-01] VITALS: Ht 165.1 cm; Wt 84.1 kg
[2021-08-01 21:30] VITALS: TEMP 98.2
[2021-08-01] MEDS ORDERED: FLEXERIL 1010 MG/TAB PO (23:39)
[2021-08-01 23:57] VITALS: BP 152/78; PULSE 76
== END 2021-08-01 23:57 | disposition home or self-care (01) ==
LOC: COL.ER 21:26
DX: S19.9XXA Unspecified injury of neck, initial encounter (principal); M25.512 Pain in left shoulder; F32.A Depression, unspecified; F41.9 Anxiety disorder, unspecified; G43.909 Migraine, unspecified, not intractable, without status migrainosus; Z88.5 Allergy status to narcotic agent; Z79.899 Other long term (current) drug therapy; W18.2XXA Fall in (into) shower or empty bathtub, initial encounter
CPT/HCPCS: J0780

== ENCOUNTER 2021-08-10 05:56 | Emergency (ER) | payer MEDICAID ==
[~2021-08-10] VITALS: Ht 165.1 cm; Wt 81.8 kg
[2021-08-10 08:15] VITALS: BP 100/64; PULSE 90; TEMP 97.6
== END 2021-08-10 08:15 | disposition home or self-care (01) ==
LOC: COL.ER 05:56
DX: G43.909 Migraine, unspecified, not intractable, without status migrainosus (principal); F31.9 Bipolar disorder, unspecified; Z79.899 Other long term (current) drug therapy
CPT/HCPCS: J0780; J1100; J1200; J7030

== ENCOUNTER 2021-08-15 19:45 | Emergency (ER) | payer MEDICAID ==
[~2021-08-15] VITALS: Ht 165.1 cm; Wt 84.1 kg
[2021-08-15 20:09] VITALS: TEMP 98.2
[2021-08-15 20:37] LABS: BASO % 0.7 % (0.0-2.0); EOS # 0.2 K/mm3 (0.0-0.7); EOS % 2.8 % (0-4.0); GRAN # 2.6 K/mm3 (1.4-6.5); GRAN % 42.6 % (42.2-75.2); HEMATOCRIT 38.3 % (37.0-47.0); HEMOGLOBIN 13.2 g/dl (12.5-16.0); LYMPH # 2.8 K/mm3 (1.2-3.4); LYMPH % 45.7 % (20.0-51.0); MEAN CELL VOLUME 82 fl (80.0-100.0); MEAN CORPUSCULAR HEMOGLOBIN 28 pg (27.0-31.0); MEAN CORPUSCULAR HGB CONC 35 g/dl (33.0-37.0); MEAN PLATELET VOLUME 10.6 fl (7.4-10.4); MONO # 0.5 K/mm3 (0.1-0.6); PLATELET COUNT 230 K/mm3 (130-400); RED BLOOD COUNT 4.69 M/mm3 (4.10-5.30); REDCELL DISTRIBUTION WIDTH-CV 13.6 % (11.5-14.5)
[2021-08-15 21:01] LABS: ALBUMIN 4.4 gm/dL (3.5-5.0); BILIRUBIN,TOTAL 0.3 mg/dL (0.2-1.2); CALCIUM 9.7 mg/dL (8.4-10.2); CREATININE, serum 0.69 mg/dL (0.57-1.11); POTASSIUM 3.8 mmol/L (3.5-4.5); TOTAL PROTEIN 7.1 gm/dL (6.2-8.1)
[2021-08-15 21:12] LABS: COLLECTION METHOD CLEAN CATCH
[2021-08-15 21:29] LABS: MUCOUS Present (NOT PRESENT); PH 5 (5-8); URINE APPEARANCE Cloudy (CLEAR/HAZY); URINE BACTERIA None Seen (NONE SEEN); URINE BILIRUBIN Negative (NEGATIVE); URINE BLOOD 3+ (NEGATIVE); URINE CALCIUM OXALATE CRYSTAL Present (NOT PRESENT); URINE COLOR Yellow (YELLOW); URINE GLUCOSE Negative (NEGATIVE); URINE KETONE Trace (NEGATIVE); URINE LEUKOCYTE ESTERASE Negative (NEGATIVE); URINE NITRATE Negative (NEGATIVE); URINE PROTEIN(semi-quant) 1+ (NEGATIVE); URINE RBC >50 /hpf (0-2)
[2021-08-15 23:45] VITALS: BP 121/84; PULSE 70
== END 2021-08-15 23:45 | disposition home or self-care (01) ==
LOC: COL.ER 19:45
PROVIDERS: Emergency Medicine
DX: R10.32 Left lower quadrant pain (principal); R31.9 Hematuria, unspecified; R11.2 Nausea with vomiting, unspecified; G43.909 Migraine, unspecified, not intractable, without status migrainosus; Z87.442 Personal history of urinary calculi; Z96.0 Presence of urogenital implants; Z98.84 Bariatric surgery status; Z88.5 Allergy status to narcotic agent; Z32.02 Encounter for pregnancy test, result negative
CPT/HCPCS: J1170; J2270; J2405; J2550; J7030; Q9967

== ENCOUNTER 2021-08-29 07:11 | Emergency (ER) | payer MEDICAID ==
[~2021-08-29] VITALS: Ht 165.1 cm; Wt 83.2 kg
[2021-08-29 07:28] VITALS: TEMP 98.1
[2021-08-29] MEDS ORDERED: MEDROL 4MG DOSPA4 MG PO (10:22)
[2021-08-29 10:30] VITALS: BP 128/81; PULSE 80
== END 2021-08-29 10:32 | disposition home or self-care (01) ==
LOC: COL.ER 07:11
DX: M54.16 Radiculopathy, lumbar region (principal); G43.909 Migraine, unspecified, not intractable, without status migrainosus; Z87.442 Personal history of urinary calculi; Z90.49 Acquired absence of other specified parts of digestive tract; Z98.84 Bariatric surgery status; Z88.6 Allergy status to analgesic agent; Z79.891 Long term (current) use of opiate analgesic
CPT/HCPCS: J1170; J2270; J2550

== ENCOUNTER 2021-09-02 03:18 | Emergency (ER) | payer MEDICAID ==
[~2021-09-02 03:18] MED LIST changes: +MEDROL 4MG DOSPA4 MG PO
[2021-09-02 03:22] VITALS: TEMP 97.6
[2021-09-02 04:46] VITALS: BP 104/57; PULSE 80
== END 2021-09-02 04:49 | disposition home or self-care (01) ==
LOC: COL.ER 03:18
DX: G43.909 Migraine, unspecified, not intractable, without status migrainosus (principal); F41.9 Anxiety disorder, unspecified; F32.A Depression, unspecified; Z88.6 Allergy status to analgesic agent; Z79.891 Long term (current) use of opiate analgesic; Z79.899 Other long term (current) drug therapy
CPT/HCPCS: J2270; J2550

== ENCOUNTER 2021-09-04 06:13 | Emergency (ER) | payer MEDICAID ==
[~2021-09-04] VITALS: Ht 165.1 cm; Wt 82.7 kg
[2021-09-04 06:15] VITALS: TEMP 98
[2021-09-04 06:56] VITALS: BP 132/78; PULSE 76
== END 2021-09-04 06:56 | disposition home or self-care (01) ==
LOC: COL.ER 06:13
DX: G43.909 Migraine, unspecified, not intractable, without status migrainosus (principal); Z79.899 Other long term (current) drug therapy
CPT/HCPCS: J2550; J8540

== ENCOUNTER 2021-12-14 14:45 | Emergency (ER) | payer MEDICAID ==
[~2021-12-14] VITALS: Ht 165.1 cm; Wt 84.1 kg
[2021-12-14 15:05] VITALS: TEMP 98.2
[2021-12-14 15:48] LABS: COLLECTION METHOD CLEAN CATCH
[2021-12-14 15:59] LABS: MUCOUS Present (NOT PRESENT); PH 7 (5-8); SQUAMOUS EPITHELIAL 20-50 /hpf (0-10); URINE APPEARANCE Turbid (CLEAR/HAZY); URINE BACTERIA None Seen /hpf (NONE SEEN); URINE BILIRUBIN Negative (NEGATIVE); URINE BLOOD Negative (NEGATIVE); URINE COLOR Yellow (YELLOW); URINE GLUCOSE Negative (NEGATIVE); URINE KETONE Trace (NEGATIVE); URINE LEUKOCYTE ESTERASE Negative (NEGATIVE); URINE NITRATE Negative (NEGATIVE); URINE PROTEIN(semi-quant) Negative (NEGATIVE)
[2021-12-14 16:26] LABS: BASO % 0.7 % (0.0-2.0); EOS # 0.1 K/mm3 (0.0-0.7); EOS % 1.1 % (0.0-4.0); GRAN # 4.3 K/mm3 (1.4-6.5); GRAN % 69.6 % (42.2-75.2); HEMOGLOBIN 12.2 g/dl (12.5-16.0); LYMPH # 1.4 K/mm3 (1.2-3.4); LYMPH % 22.3 % (20.0-51.0); MEAN CELL VOLUME 81 fl (80.0-100.0); MEAN CORPUSCULAR HEMOGLOBIN 28 pg (27-31); MEAN CORPUSCULAR HGB CONC 34 g/dl (33.0-37.0); MEAN PLATELET VOLUME 10.6 fl (7.4-10.4); MONO # 0.4 K/mm3 (0.1-0.6); MONO % 6.1 % (1.7-9.3); PLATELET COUNT 260 K/mm3 (130-400); RED BLOOD COUNT 4.43 M/mm3 (4.10-5.30); REDCELL DISTRIBUTION WIDTH-CV 13.1 % (11.5-14.5)
[2021-12-14 16:28] LABS: HEMATOCRIT 35.7 % (37.0-47.0)
[2021-12-14 16:39] LABS: ALBUMIN 4.2 gm/dL (3.5-5.0); BILIRUBIN,TOTAL 0.4 mg/dL (0.2-1.2); C-REACTIVE PROTEIN 0.22 mg/dL (0.00-0.50); CALCIUM 8.9 mg/dL (8.4-10.2); CREATININE, serum 0.67 mg/dL (0.57-1.11); POTASSIUM 3.7 mmol/L (3.5-4.5); TOTAL PROTEIN 7.5 gm/dL (6.2-8.1)
[2021-12-14] MEDS ORDERED: OMNICEF 300MG300 MG PO (18:23)
[2021-12-14] MEDS ORDERED: PERCOCET 325 MG1 TA2 PO (18:23)
[2021-12-14 18:31] VITALS: BP 137/85; PULSE 74
== END 2021-12-14 18:38 | disposition home or self-care (01) ==
LOC: COL.ER 14:45
PROVIDERS: Family Medicine
DX: N30.00 Acute cystitis without hematuria (principal); Z90.49 Acquired absence of other specified parts of digestive tract; Z98.84 Bariatric surgery status; Z88.0 Allergy status to penicillin; Z88.6 Allergy status to analgesic agent
CPT/HCPCS: J0696; J2270; J2405; J7120

== ENCOUNTER 2022-01-05 21:31 | Emergency (ER) | payer MEDICAID ==
[~2022-01-05] VITALS: Ht 165.1 cm; Wt 79.5 kg
[2022-01-05 21:37] VITALS: TEMP 97.1
[2022-01-06 00:40] VITALS: BP 136/78; PULSE 88
== END 2022-01-06 00:39 | disposition home or self-care (01) ==
LOC: COL.ER 21:31
DX: G43.909 Migraine, unspecified, not intractable, without status migrainosus (principal); Z88.6 Allergy status to analgesic agent
CPT/HCPCS: J2270; J2550; J7030

== ENCOUNTER 2022-01-14 07:38 | Emergency (ER) | payer MEDICAID ==
[~2022-01-14] VITALS: Ht 167.6 cm; Wt 81.8 kg
[2022-01-14 08:51] VITALS: BP 138/83; PULSE 63; TEMP 98
[2022-01-14] MEDS ORDERED: ATARAX 25MG25 MG/TAB PO (08:53)
[2022-01-14] MEDS ORDERED: ZOMIG5 M1 NS (08:54)
[2022-01-14] MEDS ORDERED: ABILIFY5 MG PO (08:54)
== END 2022-01-14 08:55 | disposition home or self-care (01) ==
LOC: COL.ER 07:38
DX: R51.9 Headache, unspecified (principal); Z28.310 Unvaccinated for COVID-19
CPT/HCPCS: J0780

== ENCOUNTER 2022-02-21 14:19 | Emergency (ER) | payer MEDICAID ==
[~2022-02-21] VITALS: Ht 167.6 cm; Wt 81.8 kg
[~2022-02-21 14:19] MED LIST changes: +ABILIFY5 MG PO; +ATARAX 25MG25 MG/TAB PO; +ZOMIG5 M1 NS
[2022-02-21 14:27] VITALS: BP 145/71; TEMP 97.7
[2022-02-21 15:39] VITALS: PULSE 82
== END 2022-02-21 15:40 | disposition home or self-care (01) ==
LOC: COL.ER 14:19
DX: S93.602A Unspecified sprain of left foot, initial encounter (principal); Z28.310 Unvaccinated for COVID-19; X50.1XXA Overexertion from prolonged static or awkward postures, initial encounter

== ENCOUNTER 2022-03-06 22:20 | Emergency (ER) | payer MEDICAID ==
[~2022-03-06] VITALS: Ht 167.6 cm; Wt 84.1 kg
[2022-03-06 22:36] VITALS: TEMP 97.7
[2022-03-06] MEDS ORDERED: ZOLOFT 100MG100 MG PO (23:00)
[2022-03-07 00:57] VITALS: BP 129/81; PULSE 72
== END 2022-03-07 00:59 | disposition home or self-care (01) ==
LOC: COL.ER 22:20
DX: G43.909 Migraine, unspecified, not intractable, without status migrainosus (principal); Z28.310 Unvaccinated for COVID-19
CPT/HCPCS: J0780; J1200; J7120

== ENCOUNTER 2022-03-16 22:50 | Emergency (ER) | payer MEDICAID ==
[~2022-03-16] VITALS: Ht 167.6 cm; Wt 84.1 kg
[~2022-03-16 22:50] MED LIST changes: +ZOLOFT 100MG100 MG PO
[2022-03-17 01:53] VITALS: BP 117/84; PULSE 62; TEMP 98.1
== END 2022-03-17 01:53 | disposition home or self-care (01) ==
LOC: COL.ER 22:50
DX: G89.18 Other acute postprocedural pain (principal); M79.672 Pain in left foot; Z79.891 Long term (current) use of opiate analgesic; Z28.310 Unvaccinated for COVID-19
CPT/HCPCS: J2270

== ENCOUNTER 2022-03-18 17:07 | Emergency (ER) | payer MEDICAID ==
[~2022-03-18] VITALS: Ht 167.6 cm; Wt 81.8 kg
[2022-03-18 17:31] VITALS: TEMP 98
[2022-03-18 20:24] VITALS: BP 121/80; PULSE 76
== END 2022-03-18 20:25 | disposition home or self-care (01) ==
LOC: COL.ER 17:07
DX: G89.18 Other acute postprocedural pain (principal); F17.290 Nicotine dependence, other tobacco product, uncomplicated; Z28.310 Unvaccinated for COVID-19
CPT/HCPCS: J1170

== ENCOUNTER 2022-05-06 09:36 | Outpatient (RCR) | payer MEDICAID | END 2022-05-11 | disposition home or self-care (01) | LOC: MKS.ESL.PT | DX: M25.572 Pain in left ankle and joints of left foot (principal) ==

== ENCOUNTER 2022-05-09 08:26 | Emergency (ER) | payer MEDICAID ==
[~2022-05-09] VITALS: Ht 167.6 cm; Wt 81.8 kg
[2022-05-09 08:35] VITALS: TEMP 97.7
[2022-05-09 09:17] LABS: COLLECTION METHOD CLEAN CATCH
[2022-05-09 09:30] LABS: MUCOUS Present (NOT PRESENT); URINE BACTERIA None Seen /hpf (NONE SEEN); URINE RBC 0-2 /hpf (0-2); URINE WBC 0-2 /hpf (0-2)
[2022-05-09 09:37] LABS: PH 6.5 (5.0-8.5); URINE APPEARANCE Hazy (CLEAR/HAZY); URINE BLOOD Negative (NEGATIVE); URINE COLOR Yellow (YELLOW); URINE GLUCOSE Negative (NEGATIVE); URINE KETONE Negative (NEGATIVE); URINE NITRATE Negative (NEGATIVE); URINE PROTEIN(semi-quant) Negative (NEGATIVE); URINE UROBILINOGEN 0.2 E.U/dL (0.2-1.0)
[2022-05-09 10:47] VITALS: BP 104/70; PULSE 58
== END 2022-05-09 10:48 | disposition home or self-care (01) ==
LOC: COL.ER 08:26
PROVIDERS: Emergency Medicine
DX: G43.909 Migraine, unspecified, not intractable, without status migrainosus (principal); Z87.891 Personal history of nicotine dependence; Z28.310 Unvaccinated for COVID-19
CPT/HCPCS: J0780; J1200; J2270; J7120

== ENCOUNTER 2022-05-13 16:17 | Emergency (ER) | payer MEDICAID ==
[~2022-05-13] VITALS: Ht 167.6 cm; Wt 81.8 kg
[2022-05-13 20:02] VITALS: BP 118/64; PULSE 78; TEMP 97.6
== END 2022-05-13 20:04 | disposition home or self-care (01) ==
LOC: COL.ER 16:17
DX: G43.909 Migraine, unspecified, not intractable, without status migrainosus (principal); Z28.310 Unvaccinated for COVID-19; Z88.5 Allergy status to narcotic agent; Z88.8 Allergy status to other drugs, medicaments and biological substances
CPT/HCPCS: J1200; J2270; J2550; J7030

== ENCOUNTER 2022-05-20 03:02 | Emergency (ER) | payer MEDICAID ==
[~2022-05-20] VITALS: Ht 167.6 cm; Wt 81.8 kg
[2022-05-20 03:17] VITALS: TEMP 98.6
[2022-05-20 03:27] LABS: COLLECTION METHOD CLEAN CATCH
[2022-05-20 03:39] LABS: MUCOUS Present (NOT PRESENT); URINE BACTERIA None Seen /hpf (NONE SEEN); URINE RBC 0-2 /hpf (0-2)
[2022-05-20 03:41] LABS: PH 6.5 (5.0-8.5); URINE APPEARANCE Clear (CLEAR/HAZY); URINE BLOOD Negative (NEGATIVE); URINE COLOR Yellow (YELLOW); URINE GLUCOSE Negative (NEGATIVE); URINE KETONE Negative (NEGATIVE); URINE NITRATE Negative (NEGATIVE); URINE PROTEIN(semi-quant) Negative (NEGATIVE); URINE UROBILINOGEN 0.2 E.U/dL (0.2-1.0)
[2022-05-20 05:45] VITALS: BP 108/67; PULSE 74
== END 2022-05-20 05:45 | disposition home or self-care (01) ==
LOC: COL.ER 03:02
PROVIDERS: Personal Emergency Response Attendant
DX: R10.9 Unspecified abdominal pain (principal); R11.10 Vomiting, unspecified; Z90.49 Acquired absence of other specified parts of digestive tract; Z98.84 Bariatric surgery status; Z88.6 Allergy status to analgesic agent; Z32.02 Encounter for pregnancy test, result negative; Z28.310 Unvaccinated for COVID-19
CPT/HCPCS: J2270

== ENCOUNTER 2022-05-24 05:21 | Emergency (ER) | payer MEDICAID ==
[~2022-05-24] VITALS: Ht 167.6 cm; Wt 81.8 kg
[2022-05-24 05:24] VITALS: TEMP 98.1
[2022-05-24 05:33] LABS: COLLECTION METHOD CLEAN CATCH
[2022-05-24 05:39] LABS: MUCOUS Present (NOT PRESENT); URINE BACTERIA Rare /hpf (NONE SEEN); URINE RBC 0-2 /hpf (0-2)
[2022-05-24 05:40] LABS: URINE APPEARANCE Hazy (CLEAR/HAZY); URINE BLOOD Negative (NEGATIVE); URINE COLOR Yellow (YELLOW); URINE GLUCOSE Negative (NEGATIVE); URINE KETONE Negative (NEGATIVE); URINE NITRATE Negative (NEGATIVE); URINE PROTEIN(semi-quant) Negative (NEGATIVE); URINE UROBILINOGEN 0.2 E.U/dL (0.2-1.0)
[2022-05-24] MEDS ORDERED: LIDODERM 5% PATC1 EA TP (05:48)
[2022-05-24] MEDS ORDERED: FLEXERIL 1010 MG/TAB PO (05:48)
[2022-05-24 05:54] VITALS: BP 122/70; PULSE 76
== END 2022-05-24 05:54 | disposition home or self-care (01) ==
LOC: COL.ER 05:21
PROVIDERS: Emergency Medicine
DX: M54.6 Pain in thoracic spine (principal); Z28.310 Unvaccinated for COVID-19

== ENCOUNTER 2022-05-31 20:38 | Emergency (ER) | payer MEDICAID ==
[~2022-05-31] VITALS: Ht 167.6 cm; Wt 81.8 kg
[~2022-05-31 20:38] MED LIST changes: +LIDODERM 5% PATC1 EA TP
[2022-05-31 20:43] VITALS: TEMP 98.6
[2022-06-01 00:49] VITALS: BP 109/72; PULSE 53
[2022-06-02] MEDS ORDERED: NORCO 325 MG-51 TAB PO ×3 (15:28→15:35)
== END 2022-06-01 00:50 | disposition home or self-care (01) ==
LOC: COL.ER 20:38
DX: G43.909 Migraine, unspecified, not intractable, without status migrainosus (principal); J06.9 Acute upper respiratory infection, unspecified; Z88.5 Allergy status to narcotic agent; Z20.822 Contact with and (suspected) exposure to COVID-19; Z28.310 Unvaccinated for COVID-19
CPT/HCPCS: J1170; J2270; J2360; J2550; J7030

== ENCOUNTER 2022-06-02 09:48 | Emergency (ER) | payer MEDICAID ==
[~2022-06-02] VITALS: Ht 167.6 cm; Wt 81.8 kg
[2022-06-02 09:52] VITALS: TEMP 97.9
[2022-06-02 13:43] VITALS: BP 115/79; PULSE 66
[2022-06-02] MEDS ORDERED: NORCO 325 MG-51 TAB PO ×3 (15:28→15:35)
== END 2022-06-02 13:45 | disposition home or self-care (01) ==
LOC: COL.ER 09:48
DX: G43.909 Migraine, unspecified, not intractable, without status migrainosus (principal); F17.290 Nicotine dependence, other tobacco product, uncomplicated; Z28.310 Unvaccinated for COVID-19; Z88.6 Allergy status to analgesic agent; Z88.8 Allergy status to other drugs, medicaments and biological substances
CPT/HCPCS: J0595; J2360; J2550

== ENCOUNTER → 2022-09-09 | Outpatient (CLI) | payer MEDICAID ==
[~2022-09-09] MED LIST changes: +XANAX 0.5MG0.5 MG PO; +ZOLOFT 50MG50 MG PO
== END ==
LOC: MHCPAIN 15:00
DX: M79.605 Pain in left leg (principal); M51.26 Other intervertebral disc displacement, lumbar region; M79.2 Neuralgia and neuritis, unspecified; Q76.49 Other congenital malformations of spine, not associated with scoliosis; Z82.0 Family history of epilepsy and other diseases of the nervous system; Z98.890 Other specified postprocedural states
CPT/HCPCS: G0463

== ENCOUNTER → 2022-11-14 | Outpatient (CLI) | payer BC ==
[~2022-11-14] MED LIST changes: -XANAX 0.5MG0.5 MG PO; -ZOLOFT 50MG50 MG PO
== END ==
LOC: MHCPAIN 13:02
DX: M51.16 Intervertebral disc disorders with radiculopathy, lumbar region (principal); M65.30 Trigger finger, unspecified finger; M47.816 Spondylosis without myelopathy or radiculopathy, lumbar region
CPT/HCPCS: J1100; Q9967

== ENCOUNTER → 2022-11-23 | Outpatient (CLI) | payer BC | LOC: MHCPAIN 14:26 | DX: M65.342 Trigger finger, left ring finger (principal); M65.332 Trigger finger, left middle finger | CPT/HCPCS: J3301 ==

== ENCOUNTER 2023-01-19 13:48 | Emergency (ER) | payer BC ==
[~2023-01-19] VITALS: Ht 165.1 cm; Wt 65.9 kg
[2023-01-19 13:55] VITALS: TEMP 98.1
[2023-01-19 16:09] VITALS: BP 114/68; PULSE 73
== END 2023-01-19 16:10 | disposition home or self-care (01) ==
LOC: COL.ER 13:48
DX: G43.909 Migraine, unspecified, not intractable, without status migrainosus (principal); Z28.310 Unvaccinated for COVID-19
CPT/HCPCS: J1200; J2270; J2405; J2550; J7030

== ENCOUNTER → 2024-06-03 | Outpatient (CLI) | payer BC ==
[~2024-06-03] MED LIST changes: +Lidocaine PF 1% (10 MG/ML) 5 ML VIAL ONE; +Triamcinolone 40 MG/ML 1 ML VIAL ONE; +XANAX 0.5MG0.5 MG PO; +ZOLOFT 50MG50 MG PO
== END ==
LOC: MHCPAIN 15:27
DX: M65.332 Trigger finger, left middle finger (principal); M53.3 Sacrococcygeal disorders, not elsewhere classified; M54.50 Low back pain, unspecified; M79.605 Pain in left leg
CPT/HCPCS: G0463; J3301

== ENCOUNTER 2024-07-10 21:52 | Emergency (ER) | payer BC ==
[~2024-07-10] VITALS: Ht 165.1 cm; Wt 61.4 kg
[~2024-07-10 21:52] MED LIST changes: -Lidocaine PF 1% (10 MG/ML) 5 ML VIAL ONE; -Triamcinolone 40 MG/ML 1 ML VIAL ONE
[2024-07-10 21:57] VITALS: TEMP 98.5
[2024-07-10] MEDS ORDERED: Morphine 4 MG/ML VIAL IV ONE ×2 (22:15→23:45)
[2024-07-10] MEDS ORDERED: Ondansetron 4 MG/2 ML VIAL IV ONE (22:15)
[2024-07-11 00:22] VITALS: BP 109/72; PULSE 80
== END 2024-07-11 00:22 | disposition home or self-care (01) ==
LOC: COL.ER 21:52
DX: M25.561 Pain in right knee (principal); G89.18 Other acute postprocedural pain; Z90.49 Acquired absence of other specified parts of digestive tract; Z90.89 Acquired absence of other organs
CPT/HCPCS: J2270; J2405; J3360